=== PATIENT | male | born 1945 | race Caucasian/White ===

== ENCOUNTER 2022-06-02 15:34 | Outpatient (CLI) | payer OTHER, SELFPAY ==
[2022-06-02 14:05] LABS: Albumin* 4.5 g/dL (3.3-5.0); Chloride* 106 mmol/L (96-114)
[2022-06-02 14:06] LABS: Potassium* 4.6 mmol/L (3.6-5.1); Sodium* 140 mmol/L (135-149)
[2022-06-02 14:08] LABS: Bilirubin Total* 0.8 mg/dL (0.1-1.5); Carbon Dioxide* 24 mmol/L (20-32); Cholesterol* 118 mg/dL (90-199); Creatinine* 1.3 mg/dL (0.5-1.5); Estimated Glomerular Filt Rate 57 ml/min
[2022-06-02 14:09] LABS: Alanine Aminotransferase* 37 U/L (4-50); Alkaline Phosphatase* 61 U/L (40-150); Aspartate Amino Transferase* 32 U/L (12-35); Blood Urea Nitrogen* 23 mg/dL (7-30); Calcium* 8.5 mg/dL (8.4-10.6); Glucose* 109 mg/dL (60-115); HDL Cholesterol* 41 mg/dL (>=40); LDL Cholesterol Calculated 51 mg/dL (<100); Total Protein* 7.4 g/dL (6.0-8.3); Triglycerides* 129 mg/dL (40-149)
[2022-06-02 14:37] LABS: PSA Screen* 3.36 ng/mL (0.10-4.00)
[2022-06-02 23:03] LABS: Creatinine Urine 87.7 mg/dL
[2022-06-02 23:08] LABS: Microalbumin Creatinine Ratio 10 mg/g (0-30); Microalbumin Urine 1 mg/dL
== END 2022-06-02 15:35 | disposition home or self-care (01) ==
PROVIDERS: PCP Family Medicine; Visit Provider Family Medicine
DX: Z00.00 Encounter for general adult medical examination without abnormal findings (principal); E11.9 Type 2 diabetes mellitus without complications; I10 Essential (primary) hypertension; E78.5 Hyperlipidemia, unspecified; E78.00 Pure hypercholesterolemia, unspecified; N40.0 Benign prostatic hyperplasia without lower urinary tract symptoms
CPT/HCPCS: 80053; 80061; 82043; 82570; 84153

== ENCOUNTER 2023-06-02 09:09 | Outpatient (CLI) | payer OTHER, SELFPAY | END 2023-06-02 09:10 | disposition home or self-care (01) | LOC: NFLDREF 06-03 09:15 | PROVIDERS: PCP Family Medicine; Referring Provider Family Medicine; Visit Provider Family Medicine | DX: I10 Essential (primary) hypertension (principal); E78.5 Hyperlipidemia, unspecified; E11.9 Type 2 diabetes mellitus without complications; Z12.5 Encounter for screening for malignant neoplasm of prostate | CPT/HCPCS: 80053; 80061; 82043; 82570; 84153; 85027 ==

== ENCOUNTER 2023-07-12 13:42 | Outpatient (CLI) | payer OTHER, SELFPAY | END 2023-07-12 13:43 | disposition home or self-care (01) | LOC: RAD 13:43 | PROVIDERS: PCP Family Medicine; Visit Provider Family Medicine | DX: R01.1 Cardiac murmur, unspecified (principal) | CPT/HCPCS: 93306 ==

== ENCOUNTER 2023-07-16 10:11 | Outpatient (CLI) | payer OTHER, SELFPAY ==
--- NOTE | 2023-07-16 11:17 | W.ANESCHARGE ---
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
--- NOTE | 2023-07-16 11:25 | W.ANESCHARGE ---
Anesthesia Charges Start Date/Time Anesthesia Start Date: 07/16/23 Anesthesia Start Time: 10:51 Stop Date/Time Anesthesia Stop Date: 07/16/23 Anesthesia Stop Time: 11:15 Summary Extremes of Age - Over 70 or under 1: MDA
== END 2023-07-16 10:12 | disposition home or self-care (01) ==
LOC: OP CLINIC 10:11
PROVIDERS: PCP Family Medicine; Visit Provider Internal Medicine
DX: R19.5 Other fecal abnormalities (principal); K63.5 Polyp of colon
CPT/HCPCS: 00811; 45380; 88305; 99100; J2704

== ENCOUNTER 2023-08-04 14:30 | Outpatient (RCR) | payer OTHER, SELFPAY ==
--- NOTE | 2023-07-07 14:07 | PT.OPE ---
[facility] PT [facility] Eval Start: 07/07/23 09:52 Freq: Status: Active Protocol: Document 07/07/23 13:43 CJT (Rec: 07/07/23 13:53 CJT [id number]) E-signed By Juan C Mejia PT Physical Therapy Outpatient Evaluation Insurance Information Recert Due Date 10/05/23 Insurance Name Medicare B Medical Diagnosis Trapezius muscle spasm M62.838 other muscle spasm Treating Diagnosis M62.838 other muscle spasm Referring Madhu White MD Subjective Subjective Pt presents with complaints of muscle spasms in his face. This has been going on since the mid-. Pt was told by his eye doctor that it would go away in time and not related to his eye issues. Pressing on R UT seems to cause it to settle down. When pt is focused on doing something like fly fishing or tying flies his face does not twitch. If he talks to someone or even himself his face will immediately begin to twitch. Pt denies pain with this condition and reports insidious onset. Pt denies headaches, dizziness, numbness in the head and face. Pain Comments 0 Date of Last Physician Visit 07/05/23 Current Work Status Retired Preferred Name Jareth Precautions Therapy Limitations/Systems Review Not Limited Objective Other/Pertinent Objective Cervical ROM Extension - 42 Flexion - 40 R/L Side Bend - 33/15 R/L Rotation - 60/42 B shoulder ROM WNL Cervical Strength Extension - 5/5 MMT Flexion - 5/5 MMT R/L Side Bend - 5/5 MMT R/L Rotation - 5/5 MMT R Shoulder Strength Flexion - 5/5 MMT Abduction - 5/5 MMT IR (neutral) - 5/5 MMT IR (90) - 5/5 MMT ER (neutral) - 5/5 MMT ER (90) - 5/5 MMT Empty Can - 4+/5 MMT L Shoulder Strength Flexion - 5/5 MMT Abduction - 5/5 MMT IR (neutral) - 5/5 MMT IR (90) - 5/5 MMT ER (neutral) - 5/5 MMT ER (90) - 5/5 MMT Empty Can - 4+/5 MMT Palpation: pt reports tenderness/pain with palpation to L>R upper trapezius, SCM with spasms present bilaterally, R suboccipitals, masseter Posture: forward head, L shoulder elevated compared to R Cranial Nerves: 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 Assessment Assessment/Impression Jareth is a very pleasant 77 year old male who presents to our clinic for evaluation and treatment of facial muscle contractions. Jareth's facial twitching began in the mid-90' s and has worsened since. No known caused or onset. Pts facial twitching presents like a dystonia as these contractions of muscles of the face are involuntary. This twitching also only occurs in the muscles of facial expression of the R side of his face. Pts cervical and UE strength is full (see objective) and some limitations in cervical ROM have been noted. I discussed with Jareth today that I am not sure that the cause of this twitching is or how to fix it. I do worry that there is a neurological component to his issue and think advanced imaging would be helpful to determine if pt has any unknown history of TIA or neurological degeneration. Currently, I think this pt would likely benefit greatly from botox injections to muscles of facial expression to reduce contractions. Cranial nerve VII function appears to be limited on R side of pts face so this is a bit of a concern. The possible nature of the pts condition was explained and all questions were answered to the pts satisfaction. Skilled PT services are medically necessary to address deficits and return patient to highest level of function. Recommend physical therapy sessions 1/ week for 1-2 weeks. Pt agrees with this plan. Printout of HEP was given for I completion and pt gives verbal understanding of each exercise . Primary Functional Limitations none Plan of Care Rehabilitation Potential Fair Physical Therapy Goals STG - To be completed in 2-3 weeks: 1. Pt will report reduction in facial twitching by 25% so that he may speak with friends and family with reduced facial twitching. LTG - To be completed in 6-8 weeks: 1. Pt to be I with HEP so that they may I manage progression of symptoms. 2. Pt will report absence of facial twitching with speaking so that he may read bible to family without twitching. Treatment Plan/Direct Interventions Electrical Stimulation,Heat Frequency/Duration 1/week, 1-2 visits Patient Will Be Discharged From Therapy Completion of LTG(s),Skills Plateau,Independent w/HEP, Independently Progressing Evaluation Billing Untimed Code Treatment Minutes 40 PT Eval No Charge No Complexity Low Certification Information Initial Certification Date 07/07/23 Ending Certification Date 10/05/23 Provider Signature Shows Agreement With POC & Medical Necessity Physician Signature & Date Requested Please Sign/Date Here Physician Comment/Change : Physician NPI Number #
== END 2023-09-07 11:27 | disposition home or self-care (01) ==
PROVIDERS: PCP Family Medicine; Visit Provider Family Medicine
DX: M62.838 Other muscle spasm (principal); Z51.89 Encounter for other specified aftercare
CPT/HCPCS: 97032; 97140; 97161

== ENCOUNTER 2023-12-06 08:02 | Outpatient (CLI) | payer OTHER, SELFPAY | END 2023-12-06 08:03 | disposition home or self-care (01) | LOC: NFLDREF 12-08 13:58 | PROVIDERS: PCP Family Medicine; Referring Provider Family Medicine; Visit Provider Family Medicine | DX: E11.9 Type 2 diabetes mellitus without complications (principal); E78.00 Pure hypercholesterolemia, unspecified; I10 Essential (primary) hypertension | CPT/HCPCS: 80053; 80061; 82043; 82570 ==

== ENCOUNTER 2024-07-13 08:18 | Outpatient (CLI) | payer OTHER, SELFPAY | END 2024-07-13 08:19 | disposition home or self-care (01) | LOC: NFLDREF 07-17 03:03 | PROVIDERS: PCP Family Medicine; Referring Provider Family Medicine; Visit Provider Family Medicine | DX: I10 Essential (primary) hypertension (principal); Z12.5 Encounter for screening for malignant neoplasm of prostate | CPT/HCPCS: 80053; G0103 ==

== ENCOUNTER 2024-10-20 10:55 | Outpatient (CLI) | payer OTHER, SELFPAY | END 2024-10-20 10:56 | disposition home or self-care (01) | LOC: NFLDREF 10-23 09:02 | PROVIDERS: PCP Family Medicine; Referring Provider Family Medicine; Visit Provider Family Medicine | DX: R97.20 Elevated prostate specific antigen [PSA] (principal); Z12.5 Encounter for screening for malignant neoplasm of prostate | CPT/HCPCS: 84153; 84154 ==